=== PATIENT | male | born 1980 | race Caucasian/White ===

== ENCOUNTER 2019-01-19 17:18 | Emergency (ER) | payer OTHER ==
[~2019-01-19] VITALS: Ht 177.8 cm; Wt 65.2 kg
[2019-01-19 17:31] VITALS: BP 112/68
[2019-01-19] MEDS ORDERED: DIAZEPAM 5 MG TABLET ONE (17:53)
[2019-01-19] MEDS ORDERED: KETOROLAC 30 MG/1 ML ONE (17:54)
[2019-01-19] MEDS ORDERED: HYDROcodone/APAP 5/325 TABLET ONE (17:54)
[2019-01-19] MEDS ORDERED: DIAZEPAM 5 MG TABLET PO ONE (18:00)
[2019-01-19] MEDS ORDERED: PLEASE ENTER WEIGHT MC SCH (18:00)
[2019-01-19] MEDS ORDERED: KETOROLAC 30 MG/1 ML IM ONE (18:00)
[2019-01-19] MEDS ORDERED: HYDROcodone/APAP 5/325 TABLET PO ONE (18:00)
[2019-01-19 18:18] LABS: BASOPHILS # (AUTO) 0.06 x10^3/uL (0-0.1); BASOPHILS % (AUTO) 0 % (0-1); EOSINOPHILS # (AUTO) 0.06 x10^3/uL (0-0.4); EOSINOPHILS % (AUTO) 1 % (1-7); LYMPHOCYTES # (AUTO) 1.94 x10^3/uL (1-3.4); LYMPHOCYTES % (AUTO) 15 % (22-44); MD NO; MEAN CORPUSCULAR HEMOGLOBIN 27.8 pg (27.5-34.5); MEAN CORPUSCULAR HGB CONC 33.5 g/dL (33.2-36.2); MEAN CORPUSCULAR VOLUME 82.9 fL (81-97); MEAN PLATELET VOLUME 7.5 fL (7.4-10.4); MONOCYTES # (AUTO) 0.53 x10^3/uL (0.2-0.8); MONOCYTES % (AUTO) 4 % (2-9); NEUTROPHILS # (AUTO) 10.56 x10^3/uL (1.8-6.8); NEUTROPHILS % (AUTO) 80 % (42-75); PLATELET COUNT 277 x10^3/uL (130-400); RED BLOOD COUNT 5.11 x10^6/uL (4.38-5.82); RED CELL DISTRIBUTION WIDTH 13.4 % (9.4-14.8)
[2019-01-19 18:30] LABS: ALBUMIN 3.8 g/dL (3.4-5.0); ANION GAP 10 mmol/L (5-15); CALCIUM 8.9 mg/dL (8.5-10.1); CHLORIDE 103 mmol/L (98-107); CREATININE 1.21 mg/dL (0.7-1.3)
[2019-01-19] MEDS ORDERED: HYDROmorphone 1 MG/ML, 1ML AMP IM ONE (19:00)
[2019-01-19] MEDS ORDERED: HYDROmorphone 2 MG/ML, 1ML ONE (19:21)
== END 2019-01-19 20:16 | disposition home or self-care (01) ==
LOC: ED 19:45
DX: S39.012A Strain of muscle, fascia and tendon of lower back, initial encounter (principal); M54.42 Lumbago with sciatica, left side; M54.41 Lumbago with sciatica, right side; M62.830 Muscle spasm of back; X58.XXXA Exposure to other specified factors, initial encounter; Y93.89 Activity, other specified; Y92.89 Other specified places as the place of occurrence of the external cause; Y99.8 Other external cause status
CPT/HCPCS: 36415; 80048; 82040; 85025; 96372; 99283; J1170; J1885

== ENCOUNTER 2019-01-23 17:07 | Emergency (ER) | payer OTHER ==
[~2019-01-23] VITALS: Ht 177.8 cm; Wt 74.0 kg
[2019-01-23 17:13] VITALS: BP 114/73
[2019-01-23] MEDS ORDERED: LIDOCAINE-MPF 1%, 5ML ONE (17:24)
[2019-01-23] MEDS ORDERED: LIDOCAINE-MPF 1%, 5ML INFIL ONE (17:30)
[2019-01-23] MEDS ORDERED: SULFAMETH./TRIMETHOPRIM DS 800MG/160MG TABLET PO ONE (18:00)
[2019-01-23] MEDS ORDERED: CEPHALEXIN 500 MG CAPSULE PO ONE (18:00)
[2019-01-23] MEDS ORDERED: SULFAMETH./TRIMETHOPRIM DS 800MG/160MG TABLET ONE (18:29)
[2019-01-23] MEDS ORDERED: CEPHALEXIN 500 MG CAPSULE ONE (18:29)
== END 2019-01-23 19:15 | disposition home or self-care (01) ==
LOC: ED 17:44
DX: I80.01 Phlebitis and thrombophlebitis of superficial vessels of right lower extremity (principal); L03.317 Cellulitis of buttock; L02.31 Cutaneous abscess of buttock
CPT/HCPCS: 99284

== ENCOUNTER 2021-02-05 11:39 | Emergency (ER) | payer OTHER ==
[~2021-02-05] VITALS: Ht 177.8 cm; Wt 71.1 kg
--- NOTE | 2021-02-05 12:15 | NUR ---
PRODUCE TEAM MEMBER at bedside for exam.
--- NOTE | 2021-02-05 12:39 | NUR ---
No orders present at this time.
--- NOTE | 2021-02-05 12:55 | NUR ---
limnologist completed and graduate internship at bedside for xray now.
--- NOTE | 2021-02-05 13:12 | NUR ---
Film reviewed, awaiting radiologist's reading before marking chart up for recheck.
[2021-02-05 14:01] VITALS: BP 103/57
== END 2021-02-05 14:03 | disposition home or self-care (01) ==
LOC: ED 12:13
DX: M25.531 Pain in right wrist (principal); W01.0XXA Fall on same level from slipping, tripping and stumbling without subsequent striking against object, initial encounter; Y93.89 Activity, other specified; Y92.828 Other wilderness area as the place of occurrence of the external cause; Y99.8 Other external cause status
CPT/HCPCS: 29125; 99283